=== PATIENT | female | born 1945 | race Caucasian/White ===

== ENCOUNTER 2017-06-23 12:59 | Outpatient (CLI) | payer MEDICARE | END 2017-06-23 13:00 | disposition home or self-care (01) | LOC: BICMAMMO 12:59 | PROVIDERS: ATTEND Obstetrics & Gynecology | DX: Z12.31 Encounter for screening mammogram for malignant neoplasm of breast (principal) | CPT/HCPCS: 77063; 77067 ==

== ENCOUNTER 2018-06-26 10:55 | Outpatient (CLI) | payer MEDICARE ==
--- NOTE | 2018-06-26 11:50 | MMO ---
Bilateral MAMMO Bilat Screen [facility]. CLINICAL HISTORY: Patient is 72 years old and is seen for screening. The patient has no family history of breast cancer. The patient has no personal history of cancer. The patient has a history of right needle biopsy - benign. VIEWS: The views performed were: bilateral craniocaudal with tomosynthesis and bilateral mediolateral oblique with tomosynthesis. FILMS COMPARED: The present examination has been compared to prior imaging studies performed at [facility] [place] on 06/23/2017, and at [facility] on 06/10/2014, 06/16/2015 and 06/17/2016. MAMMOGRAM FINDINGS: There are scattered fibroglandular densities. Finding 1: There are stable focal asymmetries seen in both breasts. Finding 2: There are stable benign appearing calcifications seen in both breasts. There are no suspicious masses, suspicious calcifications, or new areas of architectural distortion. IMPRESSION: THERE IS NO MAMMOGRAPHIC EVIDENCE OF MALIGNANCY. A ROUTINE FOLLOW-UP MAMMOGRAM IN 1 YEAR IS RECOMMENDED. THE RESULTS OF THIS EXAM WERE SENT TO THE PATIENT. ACR BI-RADS Category 2 - Benign finding MAMMOGRAPHY NOTE: 1. A negative mammogram report should not delay a biopsy if a dominant of clinically suspicious mass is present. 2. Approximately 10% to 15% of breast cancers are not detected by mammography. 3. Adenosis and dense breasts may obscure an underlying neoplasm.
== END 2018-06-26 10:56 | disposition home or self-care (01) ==
LOC: BICMAMMO 10:55
PROVIDERS: ATTEND Internal Medicine
DX: Z12.31 Encounter for screening mammogram for malignant neoplasm of breast (principal)
CPT/HCPCS: 77063; 77067

== ENCOUNTER 2018-12-05 12:03 | Outpatient (CLI) | payer MEDICARE ==
--- NOTE | 2018-12-05 14:09 | RAD ---
Exam: Air-contrast barium enema HISTORY: Incomplete colonoscopy FINDINGS: Supine and upright Director Visual abdominal radiograph demonstrate a nonspecific bowel gas pattern. Stimulator device projects over the left hemipelvis with the lead projecting over the left sacrum. Patient was administered barium in a retrograde fashion which opacifies the majority of the colon. Th ere is evidence of multifocal diverticulosis. No evidence of a persistent filling defect or obstruction. No obvious mucosal abnormality. Postevacuation images are unremarkable. IMPRESSION: Extensive diverticulosis throughout the colon. No evidence of obstruction. Transcribed Date/Time: 12/05/2018 3:31 PM
== END 2018-12-05 12:04 | disposition home or self-care (01) ==
LOC: RAD 12:03
PROVIDERS: ATTEND Internal Medicine
DX: Z12.11 Encounter for screening for malignant neoplasm of colon (principal); K57.30 Diverticulosis of large intestine without perforation or abscess without bleeding
CPT/HCPCS: 74280

== ENCOUNTER 2019-09-03 13:23 | Outpatient (CLI) | payer MEDICARE, OTHER ==
--- NOTE | 2019-09-03 14:29 | BD ---
Exam: DEXA Bone Density 09/03/19 HISTORY: Postmenopausal screening for osteoporosis. Lumbar Spine: BMD (g/cm2) T-SCORE Z-SCORE L1 1.037 0.4 2.5 L2 1.075 0.4 2.7 L3 1.111 0.2 2.5 L4 1.251 1.7 4.2 L1-L4 1.124 0.7 3.0 Femoral Neck: 0.672 -1.6 0.4 Total Femur: 0.824 -1.0 0.7 There has been interval improvement of 6.1% of the BMD of the lumbar spine and a reduction of 5.1% in the BMD of the proximal femur since 09/07/16. The ten year fracture risk for a major osteoporotic fracture is 10% and for a hip fracture is 1.8%. IMPRESSION: Osteopenia. POS: [facility]
== END 2019-09-03 13:24 | disposition home or self-care (01) ==
LOC: BICMAMMO 13:23
PROVIDERS: ATTEND Obstetrics & Gynecology
DX: Z13.820 Encounter for screening for osteoporosis (principal); M85.859 Other specified disorders of bone density and structure, unspecified thigh
CPT/HCPCS: 77080

== ENCOUNTER 2020-07-28 13:21 | Outpatient (CLI) | payer MEDICARE, OTHER | END 2020-07-28 13:22 | disposition home or self-care (01) | LOC: BICMAMMO 13:21 | PROVIDERS: ATTEND Internal Medicine | DX: Z12.31 Encounter for screening mammogram for malignant neoplasm of breast (principal); Z80.3 Family history of malignant neoplasm of breast; Z91.89 Other specified personal risk factors, not elsewhere classified | CPT/HCPCS: 77063; 77067 ==

== ENCOUNTER 2021-07-29 09:35 | Outpatient (CLI) | payer MEDICARE, OTHER | END 2021-07-29 09:36 | disposition home or self-care (01) | LOC: BICMAMMO 09:35 | PROVIDERS: ATTEND Internal Medicine | DX: Z12.31 Encounter for screening mammogram for malignant neoplasm of breast (principal); Z80.3 Family history of malignant neoplasm of breast | CPT/HCPCS: 77063; 77067 ==

== ENCOUNTER 2021-09-29 10:47 | Outpatient (CLI) | payer MEDICARE, OTHER | END 2021-09-29 10:48 | disposition home or self-care (01) | LOC: BICMAMMO 10:47 | PROVIDERS: ATTEND Family Medicine | DX: Z13.820 Encounter for screening for osteoporosis (principal); Z78.0 Asymptomatic menopausal state; M85.851 Other specified disorders of bone density and structure, right thigh; M85.852 Other specified disorders of bone density and structure, left thigh | CPT/HCPCS: 77080 ==

== ENCOUNTER 2022-09-02 14:58 | Outpatient (CLI) | payer MEDICARE, OTHER | END 2022-09-02 14:59 | disposition home or self-care (01) | LOC: BICMAMMO 14:58 | PROVIDERS: ATTEND Family Medicine | DX: Z12.31 Encounter for screening mammogram for malignant neoplasm of breast (principal); Z80.3 Family history of malignant neoplasm of breast; Z91.89 Other specified personal risk factors, not elsewhere classified | CPT/HCPCS: 77063; 77067 ==

== ENCOUNTER 2024-10-29 12:50 | Outpatient (CLI) | payer MEDICARE, OTHER | END 2024-10-29 12:51 | disposition home or self-care (01) | LOC: MRI 12:50 | PROVIDERS: ATTEND Family Medicine Sports Medicine | DX: S46.011A Strain of muscle(s) and tendon(s) of the rotator cuff of right shoulder, initial encounter (principal); M19.011 Primary osteoarthritis, right shoulder; M85.821 Other specified disorders of bone density and structure, right upper arm; M62.511 Muscle wasting and atrophy, not elsewhere classified, right shoulder | CPT/HCPCS: 76014 ==